=== PATIENT | male | born 1965 | race Caucasian/White ===

== ENCOUNTER → 2016-09-18 | Outpatient (CLI) | payer OTHER ==
--- NOTE | 2016-09-18 10:03 | XR ---
EXAMINATION TYPE: XR knee complete LT DATE OF EXAM: 09/18/2016 9:47 AM CLINICAL HISTORY: Weakness and pain in left knee. TECHNIQUE: Three views of the left knee are obtained. COMPARISON: None. FINDINGS: There is no acute fracture/dislocation evident in left knee. There is mild to moderate tri compartment joint space loss and spurring most pronounced medial tibiofemoral compartment. The overl doyle soft tissue appears unremarkable. IMPRESSION: There is mild to moderate tricompartment degenerative changes most pronounced medial tib iofemoral compartment most likely on basis of osteoarthritis.
== END | disposition home or self-care (01) ==
LOC: RADXRMAIN 09:35
PROVIDERS: ATTEND Physician Assistant
DX: M23.92 Unspecified internal derangement of left knee (principal)

== ENCOUNTER → 2018-03-06 | Outpatient (CLI) | payer OTHER ==
--- NOTE | 2018-03-06 13:05 | CT ---
EXAMINATION TYPE: CT abdomen pelvis wo con DATE OF EXAM: 03/06/2018 COMPARISON: None HISTORY: Left flank pain, blood in urine CT DLP: 461.5 mGycm Automated exposure control for dose reduction was used. TECHNIQUE: Helical acquisition of images was performed from the lung bases through the pelvis. FINDINGS: Lack of intravenous and oral contrast limits evaluation of both the hollow and solid viscer a. LUNG BASES: No significant abnormality is appreciated. LIVER/GB: No significant abnormality is appreciated. PANCREAS: No significant abnormality is seen. No ductal dilatation. SPLEEN: No significant abnormality is seen. No splenomegaly. ADRENALS: No nodularity or thickening. KIDNEYS: No hydronephrosis or nephrolithiasis. Kidneys are overall symmetric FREE AIR: No free air is visualized ADENOPATHY: Within the limitations of lack of intravenous contrast there are no greater than 1 cm sh ort axis lymph nodes in the abdomen or pelvis. REPRODUCTIVE ORGANS: No significant abnormality is seen URINARY BLADDER: Urinary bladder is incompletely distended and without contrast therefore incomplete ly evaluated. OSSEOUS STRUCTURES: Mild degenerative changes of the lumbar spine are seen with moderate bilateral f emoral acetabular arthropathy. BOWEL: No dilated large or small bowel. Decompression of the entirety of the descending colon and sp lenic flexure into the sigmoid colon can be seen due to nondistention or colitis. Right hemicolon and transverse colon are unremarkable. OTHER: Abdominal aorta is of normal course and caliber. Right inguinal ring is fat filled with a very small hernia defect. IMPRESSION: NO HYDRONEPHROSIS OR NEPHROLITHIASIS. NO URINARY BLADDER CALCULI. IF THERE IS CONCERN FOR RENAL MASS, UROEPITHELIAL THICKENING, OR URINARY BLADDER MASS CT UROGRAM COULD BE PERFORMED. FINDINGS THAT CAN B E SEEN IN SPLENIC FLEXURE AND DESCENDING MILD UNCOMPLICATED ACUTE COLITIS OR SIMPLY NONDISTENTION.
== END | disposition home or self-care (01) ==
LOC: RADCTMAIN 02-27 14:34
PROVIDERS: ATTEND Family Medicine
DX: Z53.9 Procedure and treatment not carried out, unspecified reason (principal)

== ENCOUNTER 2018-04-03 06:30 | Inpatient (IN) | payer OTHER ==
[2018-03-31 09:52] VITALS: BMI 27.1
[~2018-04-03 06:30] MED LIST: ACETAMINOPHEN TAB 500 MG TAB PO ONE; ONDANSETRON 4 MG/2 ML VIAL IVP ONE; TRANEXAMIC ACID 1,000 MG in SODIUM CHLORIDE 0.9% 50 ML IVPB ONE; ceFAZolin IN SWFI 2 GM/20 ML SYRINGE IVP ONE
[2018-04-03] MEDS ORDERED: LACTATED RINGERS 1,000 ML IV ONE ×3 (07:03→09:42)
[2018-04-03] MEDS ORDERED: LIDOCAINE 1% 20 ML VIAL (10MG/ML) FOR IV START INTRADERMA ONE (07:05)
[2018-04-03] MEDS ORDERED: TRANEXAMIC ACID 1,000 MG/10 ML VIAL ONE (08:12)
[2018-04-03] MEDS ORDERED: MIDAZOLAM 2 MG/2 ML VIAL ONE (08:12)
[2018-04-03] MEDS ORDERED: SODIUM CHLORIDE 0.9% 100 ML BAG ONE (08:12)
[2018-04-03] MEDS ORDERED: PROPOFOL 10 MG/ML 20 ML VIAL IV ONE (08:12)
[2018-04-03] MEDS ORDERED: fentaNYL (PF) 50 MCG/ML 2 ML AMP ONE (08:12)
[2018-04-03] MEDS: ROPIVACAINE 246.25 MG, EPINEPHrine 0.5 MG, KETOROLAC 30 MG, cloNIDine HCL/PF 80 MCG, WA... MISCELLANE ONE ×10 (08:53→09:43)
[2018-04-03] MEDS ORDERED: ceFAZolin 3,000 MG in SODIUM CHLORIDE 0.9% IRRIGATIO 3,000 ML IRRIGATION ONE (08:59)
[2018-04-03] MEDS ORDERED: MAGNESIUM HYDROXIDE 2,400 MG/10 ML CUP PO PRN (11:13)
[2018-04-03] MEDS ORDERED: NALOXONE 0.4 MG/ML 1 ML VIAL IV PRN (11:13)
[2018-04-03] MEDS ORDERED: hydrOXYzine PAMOATE 25 MG CAP PO PRN (11:13)
[2018-04-03] MEDS ORDERED: HYDROmorphone 1 MG/ML 1 ML SYRINGE IVP PRN ×3 (11:13)
[2018-04-03] MEDS ORDERED: NA PHOS,M-B/NA PHOS,DI-BA 133 ML ENEMA RECTAL PRN (11:13)
[2018-04-03] MEDS ORDERED: ONDANSETRON 4 MG/2 ML VIAL IVP PRN (11:13)
[2018-04-03] MEDS ORDERED: HYDROcodone/APAP 5-325MG 1 EACH TAB PO PRN ×2 (11:13)
[2018-04-03] MEDS ORDERED: LACTATED RINGERS 1,000 ML IV SCH (11:15)
--- NOTE | 2018-04-03 11:50 | XR ---
EXAMINATION TYPE: XR knee limited LT DATE OF EXAM: 04/03/2018 CLINICAL HISTORY: Postoperative evaluation Two views of the left knee are submitted. Identified are changes of total knee arthroplasty with fem oral and tibial components appearing well seated. Postsurgical soft tissue changes are noted. Align ment is anatomic.
[2018-04-03 12:28] VITALS: BP 139/91; PULSE 59; RESP 14; TEMP 97.7
[2018-04-03] MEDS ORDERED: ceFAZolin IN SWFI 2 GM/20 ML SYRINGE IVP SCH (16:00)
--- NOTE | 2018-04-03 17:14 | P.CONS ---
History of Present Illness - Reason for Consult Perioperative complication management - History of Present Illness Patient is a pleasant a 52-year-old gentleman admitted for left knee arthroplasty electively successfully underwent surgery clinically doing well. Denied any pain at this time denied any fever chills nausea vomiting abdominal pain. Patient has he questions about anticoagulation after knee surgery answer the patient's questions and cleared his concerns. Patient does not have any surgical drain at this time. Review of Systems REVIEW OF SYSTEMS: CONSTITUTIONAL: No fever, no malaise, no fatigue. HEENT: No recent visual problems or hearing problems. Denied any sore throat. CARDIOVASCULAR: No chest pain, orthopnea, PND, no palpitations, no syncope. PULMONARY: No shortness of breath, no cough, no hemoptysis. GASTROINTESTINAL: No diarrhea, no nausea, no vomiting, no abdominal pain. Normoactive bowel sounds. NEUROLOGICAL: No headaches, no weakness, no numbness. HEMATOLOGICAL: Denies any bleeding or petechiae. GENITOURINARY: Denies any burning micturition, frequency, or urgency. MUSCULOSKELETAL/RHEUMATOLOGICAL: Denies any joint pain, swelling, or any muscle pain. ENDOCRINE: Denies any polyuria or polydipsia. The rest of the 14-point review of systems is negative. Past Medical History Past Medical History: No Reported History History of Any Multi-Drug Resistant Organisms: None Reported Past Surgical History: Appendectomy, Orthopedic Surgery, Tonsillectomy Additional Past Surgical History / Comment(s): jaw surgery, lt knee arthroscopy Past Anesthesia/Blood Transfusion Reactions: No Reported Reaction Past Psychological History: Anxiety, Depression Smoking Status: Never smoker Past Alcohol Use History: Occasional Past Drug Use History: Marijuana Additional Drug Use History / Comment(s): marijuana in past - Past Family History Mother Family Medical History: Cancer Medications and Allergies Home Medications Medication Instructions Recorded Confirmed Type Ibuprofen [Motrin] 400 mg PO Q6HR PRN 03/31/18 04/03/18 History Testosterone [Testim 1%] 1 applic TOPICAL DAILY 03/31/18 04/03/18 History Aspirin 81 mg PO BID #60 chewable 04/03/18 Rx Docusate [Colace] 100 mg PO BID #60 capsule 04/03/18 Rx Hydrocodone/Acetaminophen [[place] 1 - 2 tab PO Q4-6H PRN #50 tab 04/03/18 Rx 5-325] Rivaroxaban [Xarelto] 10 mg PO DAILY #5 tab 04/03/18 Rx Allergies Allergy/AdvReac Type Severity Reaction Status Date / Time No Known Allergies Allergy Verified 04/03/18 12:20 Physical Exam Vitals: Vital Signs Temp Pulse Pulse Pulse Resp BP BP 04/03/18 17:01 14 04/03/18 12:13 97.7 F 59 L 14 139/91 04/03/18 12:00 57 L 16 123/80 04/03/18 11:46 50 L 16 135/83 04/03/18 11:30 57 L 16 139/84 04/03/18 11:15 61 16 137/71 04/03/18 11:00 48 L 16 144/67 04/03/18 10:53 979.1 F H 63 16 144/74 04/03/18 06:49 97.4 F L 69 16 135/83 Pulse Ox 04/03/18 17:01 04/03/18 12:13 100 04/03/18 12:00 97 04/03/18 11:46 97 04/03/18 11:30 97 04/03/18 11:15 97 04/03/18 11:00 97 04/03/18 10:53 97 04/03/18 06:49 100 Intake and Output 04/03/18 04/03/18 04/03/18 06:59 14:59 22:59 Intake Total 2601 Output Total 50 Balance 2551 Intake: IV 1401 Oral 1200 Output: Estimated Blood Loss 50 Other: Weight 90.718 kg 90.718 kg PHYSICAL EXAMINATION: GENERAL: The patient is alert and oriented x3, not in any acute distress. Well developed, well nourished. HEENT: Pupils are round and equally reacting to light. EOMI. No scleral icterus. No conjunctival pallor. Normocephalic, atraumatic. No pharyngeal erythema. No thyromegaly. CARDIOVASCULAR: S1 and S2 present. No murmurs, rubs, or gallops. PULMONARY: Chest is clear to auscultation, no wheezing or crackles. ABDOMEN: Soft, nontender, nondistended, normoactive bowel sounds. No palpable organomegaly. MUSCULOSKELETAL: Deferred to orthopedic surgery EXTREMITIES: No cyanosis, clubbing, or pedal edema. NEUROLOGICAL: Gross neurological examination did not reveal any focal deficits. SKIN: No rashes. Assessment and Plan Plan: -Left knee arthroplasty: DVT prophylaxis and pain management as per primary service and patient is being discharged on anticoagulation with Xarelto which is appropriate -Osteoarthritis -Depression not in any medications patient is not depressed at this time. Patient is medically stable to be discharged
[2018-04-03] MEDS ORDERED: SENNOSIDES-DOCUSATE SODIUM 1 EACH TAB PO SCH (21:00)
[2018-04-03] MEDS ORDERED: TEMAZEPAM 15 MG CAP PO PRN (22:00)
[2018-04-04] MEDS ORDERED: RIVAROXABAN 10 MG TAB PO SCH (09:00)
--- NOTE | 2018-04-13 14:51 | P.OP ---
Date of Procedure: 04/03/18 Procedure(s) Performed: PREOPERATIVE DIAGNOSIS: Left knee severe osteoarthritis with genu varum POSTOPERATIVE DIAGNOSIS: Left knee severe osteoarthritis with genu varum OPERATION: Left knee cemented total replacement arthroplasty. ANESTHESIA: Spinal ESTIMATED BLOOD LOSS: 100 ml. [employer] PRODUCTION ASSISTANT: Steffany Jaffe NP (assistance with: patient positioning, retraction, exposure, hemostasis, leg positioning, implantation, irrigation, closure, dressing) COMPLICATIONS: None apparent. COMPONENTS IMPLANTED: Persona system from [employer] INDICATIONS: Mr. Navarro is a 52 year old male with a history of left knee osteoarthritis. Conservative treatment has been tried and has been unsuccessful in controlling symptoms adequately. The operation of knee replacement has been discussed at length in the office, as well as potential risks and complications. These are inclusive of, but not limited to: bleeding, infection, scarring, discomfort, blood vessel and nerve damage, need for further surgery, failure to relieve symptoms, persistence, recurrence, or worsening of problems, loosening, dislocation, wear, blood clot, pulmonary embolism, , gait dysfunction, stiffness, and other risks as discussed in the office. The patient elects to proceed and the consent form has been signed. PROCEDURE: The patient was taken to the operating room and positioned on the operating room table in the supine position. Anesthesia was initiated. Care was taken to make sure that all pressure points were adequately padded. The operative lower extremity was prepped and draped in the usual aseptic fashion using ChloraPrep. Ioban drape was used for the case and the patient received intravenous antibiotics within one hour of the incision. A pneumotourniquet and leg brown were used for the case. The limb was exsanguinated with an Esmarch bandage and the tourniquet was inflated to 350 mmHg. Time-out was called confirming the patient's identity, side, procedure and administration of antibiotics and tranexamic acid, 1 g IV. The incision was then created midline directly over the knee, carried down through skin and into the subcutaneous tissues and down to fascia. Full thickness subcutaneous medial flap was developed. Medial parapatellar arthrotomy was performed and the interior of the knee was inspected. There was end-stage osteoarthritis of the knee with a mild to moderate genu varum type deformity. The fat pad was excised and proximal medial release on the tibia was completed using meticulous dissection and a curved osteotome. The anterior cruciate ligament was taken down. Note was made of significant attrition of the anterior and significant degenerative appearance of the posterior cruciate ligaments. The exposure was excellent. The knee was flexed 90 degrees and the patella was everted. A spot was chosen on the femur approximately 1 cm anterior to the posterior cruciate ligament insertion and an intramedullary hole was created within the femur. The intramedullary guide was then set to 5 degrees of valgus. The distal cutting block was attached and pinned into position. An appropriate amount of distal femoral resection was set. The oscillating saw was then used to make the distal femoral cut. This cut was confirmed to be flat with the flat end of an osteotome. The retractors were placed around the tibia and the tibial surface was addressed. The angle and depth of resection was adjusted using an extramedullary cutting guide. The guide had a built-in 3 degree posterior slope cut. Once the cutting guide was adjusted appropriately and in line with the axis of the tibia and confirmed to be in good position in relation to the second metatarsal and transmalleolar axis, the tibial cut was then created with protection of the posterior neurovascular structures and the collateral ligaments. The tibial cut surface was removed and sized. Femoral sizing was then accomplished using anterior referencing. Care was taken to analyze the posterior condyles for signs of deficiency or severe wear, and adjustments to the guide were made, as appropriate. 3 degree external rotation pins were placed. The cutting jig for the femur was applied to these pins. The planned cuts were further analyzed prior to performing them with the oscillating saw. No femoral notching was produced. Bone fragments were removed and the cut surfaces were finished, as necessary, with a reciprocating saw. Spacer block technique was then used to confirm that the flexion and extension gaps were equal. Soft tissue releases and adjustment of the tibial and/or femoral cuts were made, as necessary, until the gaps were equal. This included release of the posterior cruciate ligament, which was tight in this patient. The femur was then further finished for a posterior cruciate ligament substituting component. Patellar resurfacing was performed using a reamer. The size of the required patellar component was estimated and the patellar surface was then reamed down to a residual thickness which would recreate the [place] thickness with the component. The exact placement of the patellar component was adjusted for position based on preoperative x-rays and intraoperative findings. Prior to placing trial components, anesthetic solution consisting of ropivicaine with epinephrine, ketorolac, and clonidine was injected carefully and methodically in a grid pattern using aspiration technique into the soft tissue around the knee circumferentially, starting with the deeper tissues first and progressing to fascia, and then finally the skin/subcutaneous tissue. Particular care was taken when injecting the posterior capsule. The trial components were inserted. The tibial tray was allowed to self center and the patella was noted to track very well. The position of the tibial component was marked and the tibia was then finished for a stemmed tibial component. Cement was mixed on the back table and applied to the final components. Trial components were removed and the cut surfaces of the bone were pulse lavaged thoroughly and dried. Cement was then applied to the tibial surface and pressurized into the surface using finger pressurization technique. The tibial component was then applied and excess cement was removed after it was impacted securely and noted to be flush with the cut surface. In similar fashion, the cement was applied to the cut femoral surface, pressurized in using finger pressurization and the component was impacted into place. Excess cement was removed. The polyethylene spacer was then implanted and locked into position. The patellar component was then applied in similar technique and a patellar clamp was used to hold the patella in place as the cement hardened. Once the cement had fully hardened, the knee was reinspected. Any other cement extrusion was removed and final kinematic testing showed range of motion from 0 to 130 degrees with excellent stability, both medially and laterally and appropriate alignment of the leg. Patellar tracking was excellent. The knee was then thoroughly pulse lavaged with normal saline. The tourniquet was deflated and hemostasis was obtained with electrocautery and IV tranexamic acid, 1 g given prior to inflation of the tourniquet and another gram given at the time of closure. Closure was with #2 Ethibond in the fascia and supplemented with #2 Quill, 2-0 Vicryl suture was used for the subcutaneous tissues and 3-0 Quill for the skin. Dermabond/Steri-Strips were then applied. A lightly compressive dressing was applied using Webril and an Saurav wrap. The patient was then transferred to stretcher and taken to the recovery room in stable condition. Sponge and needle counts were correct.
== END 2018-04-03 17:54 | disposition home or self-care (01) | DRG 470 ==
LOC: 2ORMAIN 06:30 → 4SSUR 12:08
PROVIDERS: ADMIT Orthopaedic Surgery; ATTEND Orthopaedic Surgery
PROC: 0SRD0J9 Replacement of Left Knee Joint with Synthetic Substitute, Cemented, Open Approach (ICD-10-PCS; principal; 2018-04-03 08:00)
DX: M17.12 Unilateral primary osteoarthritis, left knee (principal); I10 Essential (primary) hypertension; M21.162 Varus deformity, not elsewhere classified, left knee; M71.22 Synovial cyst of popliteal space [Baker], left knee; Z79.899 Other long term (current) drug therapy; Z90.49 Acquired absence of other specified parts of digestive tract; Z86.59 Personal history of other mental and behavioral disorders; Z80.9 Family history of malignant neoplasm, unspecified
CPT/HCPCS: 88300

== ENCOUNTER → 2018-05-26 | Outpatient (CLI) | payer OTHER ==
--- NOTE | 2018-05-26 23:06 | CT ---
EXAMINATION TYPE: CT urogram wo/w con DATE OF EXAM: 05/26/2018 COMPARISON: 03/06/2018 HISTORY: 52-year-old male left flank pain, hematuria TECHNIQUE: Contiguous axial scanning of the abdomen and pelvis performed without and with IV Contrast , patient injected with 100 mL of Isovue 300. Delayed images through the the kidneys and bladder were obtained. Coronal/sagittal reconstructions performed. 3-D reconstructions generated on a dedicated [employer] workstation. CT DLP: 2519 mGycm Automated exposure control for dose reduction was used. FINDINGS: The heart is normal size without pericardial effusion. Areas of probable atelectasis in the lower ellie gs. No pleural effusion. Small hiatal hernia. No focal liver lesion. No biliary ductal dilatation. Portal venous system is patent. Gallbladder, adrenal glands, spleen, and pancreas appear within normal limits. There is symmetric uptake and excretion of contrast from both kidneys. No nephrolithiasis or hydronep hrosis. No suspicious renal lesion. No filling defects seen within the renal collecting systems. Only a small portion of the distal right ureter remains nonopacified. However, no gross abnormality i s seen in this region. The visualized ureters show normal course and caliber without any appreciable abnormality. No dilated small bowel, free fluid, or free air. A few prominent mesenteric lymph nodes measure up to 6 mm. Prominent ingested fluid within the stomach. Mild overall stool burden. No pericolonic inflammatory c hange seen. Bladder is urine distended. The delayed 10 minute series shows opacification of the posterior two thi rds of the bladder. No suspicious mural based filling defect is identified along this portion of the opacified bladder. Prostate gland is mildly enlarged at 4.0 cm. No abnormal fluid collection in the p kristi or pelvic lymphadenopathy seen. Incidental partially visualized small hydrocele on the right. Bones: Degenerative changes in both hips and SI joints and mild degenerative disc disease and facet a rthropathy throughout the visualized lumbar spine. IMPRESSION: 1. NO NEPHROLITHIASIS OR HYDRONEPHROSIS. 2. NO RENAL MASS OR SUSPICIOUS FILLING DEFECT INVOLVING THE RENAL COLLECTING SYSTEMS OR ALONG THE COU RSE OF EITHER URETER. NO UROTHELIAL LESION INVOLVING THE OPACIFIED POSTERIOR TWO THIRDS OF THE BLADDE R. 3. SMALL HIATAL HERNIA.
== END | disposition home or self-care (01) ==
LOC: RADCTMAIN 14:17
PROVIDERS: ATTEND Family Medicine
DX: K44.9 Diaphragmatic hernia without obstruction or gangrene (principal); R31.21 Asymptomatic microscopic hematuria
CPT/HCPCS: 74178; 74400; Q9967

== ENCOUNTER 2018-06-24 09:02 | Day surgery (SDC) | payer OTHER ==
[2018-06-22 13:00] VITALS: BMI 26.2
--- NOTE | 2018-06-24 08:10 | P.GSHP ---
History of Present Illness H&P Date: 06/24/18 CHIEF COMPLAINT: Colon screen HISTORY OF PRESENT ILLNESS: The patient is a 53-year-old male who presents for colon screen. Lower endoscopy was offered for further evaluation and management. PAST MEDICAL HISTORY: Please see list. PAST SURGICAL HISTORY: Please see list. MEDICATIONS: Please see list. ALLERGIES: Please see list. SOCIAL HISTORY: No illicit drug use FAMILY HISTORY: No reports of Crohn disease or ulcerative colitis. REVIEW OF ORGAN SYSTEMS: CONSTITUTIONAL: No reports of fevers or chills. PHYSICAL EXAM: VITAL SIGNS: Stable GENERAL: Well-developed pleasant in no acute distress. HEENT: No scleral icterus. Extraocular movements grossly intact. Moist buccal mucosa. NECK: Supple without lymphadenopathy. CHEST: Unlabored respirations. Equal bilateral excursions. CARDIOVASCULAR: Regular rate and rhythm. Distal 2+ pulses. ABDOMEN: Soft, nontender, nondistended. MUSCULOSKELETAL: No clubbing, cyanosis, or edema. ASSESSMENT: 1. Colon screen. PLAN: 1. Recommend proceeding with a lower endoscopy Past Medical History Past Medical History: Osteoarthritis (OA) History of Any Multi-Drug Resistant Organisms: None Reported Past Surgical History: Appendectomy, Orthopedic Surgery, Tonsillectomy Additional Past Surgical History / Comment(s): jaw surgery, lt knee arthroscopy , TOTAL LEFT KNEE Past Anesthesia/Blood Transfusion Reactions: Motion Sickness Smoking Status: Never smoker - Past Family History Mother Family Medical History: Cancer Medications and Allergies Home Medications Medication Instructions Recorded Confirmed Type Ibuprofen [Motrin] 400 mg PO Q6HR PRN 03/31/18 06/22/18 History Testosterone [Testim 1%] 1 applic TOPICAL DAILY 03/31/18 06/22/18 History Aspirin 81 mg PO BID #60 chewable 04/03/18 06/22/18 Rx Allergies Allergy/AdvReac Type Severity Reaction Status Date / Time No Known Allergies Allergy Verified 06/22/18 12:50
[~2018-06-24 09:02] MED LIST changes: -ACETAMINOPHEN TAB 500 MG TAB PO ONE; +LACTATED RINGERS 1,000 ML IV SCH; +LIDOCAINE 1% 20 ML VIAL (10MG/ML) FOR IV START INTRADERMA PRN; -ONDANSETRON 4 MG/2 ML VIAL IVP ONE; -TRANEXAMIC ACID 1,000 MG in SODIUM CHLORIDE 0.9% 50 ML IVPB ONE; -ceFAZolin IN SWFI 2 GM/20 ML SYRINGE IVP ONE
[2018-06-24 09:16] VITALS: TEMP 97.7
[2018-06-24] MEDS ORDERED: LIDOCAINE 1% INJ 10MG/ML (20 ML MDV) ONE (09:49)
[2018-06-24] MEDS ORDERED: PROPOFOL 10 MG/ML 20 ML VIAL IV ONE (09:49)
--- NOTE | 2018-06-24 10:15 | P.PCN ---
Date of Procedure: 06/24/18 Description of Procedure: PREOPERATIVE DIAGNOSIS: Colonoscopy screening, first Family history colon polyps, father POSTOPERATIVE DIAGNOSIS: Colonoscopy screening, first Family history colon polyps, father. Ascending colon polyp OPERATION: Colonoscopy with cold forceps biopsy, ascending colon Colonoscopy to the ileocecal valve SURGEON: Tonie Cornejo MD. ANESTHESIA: MAC. INDICATIONS: The patient is a 53-year-old male who presents for his first colonoscopy screening. Benefits and risks were described and informed consent was obtained. DESCRIPTION OF PROCEDURE: The patient had undergone Gatorade, MiraLAX and Dulcolax prep. She had been brought into the operating room and laid in the left lateral decubitus position. After adequate intravenous sedation, the rectum was examined with 2% lidocaine jelly. No external hemorrhoids were encountered. The rectal tone was within normal limits. The prostate was within normal limits. No lesions were palpated in the rectal vault. An Olympus colonoscope was advanced until the ileocecal valve was clearly viewed. The prep was good with visualization of the mucosal folds. The scope was removed with visualization of each mucosal fold. No scattered diverticulosis was encountered. Hyperplastic ascending 4- mm colon polyp was cold forceps biopsy to completion. No evidence of focal colitis was found. Retroflexion of the scope demonstrated no internal hemorrhoids without active bleeding or inflammation. The colon was desufflated. The patient had tolerated the procedure well. Withdrawal time was over 6 minutes. FINDINGS: No internal hemorrhoids no external prolapsed hemorrhoids Hyperplastic descending 4-mm colon polyp ascending colon No scattered diverticulosis No arteriovenous malformations. No adenomatous polyps. No focal colitis. RECOMMENDATIONS: Lower endoscopy in 5 years2023 Plan - Discharge Summary Discharge Rx Participant: Yes New Discharge Prescriptions: No Action Ibuprofen [Motrin] 400 mg PO Q6HR PRN PRN Reason: Pain Testosterone [Testim 1%] 1 applic TOPICAL DAILY Aspirin 81 mg PO BID #60 chewable Discharge Medication List Ibuprofen [Motrin] 400 mg PO Q6HR PRN 03/31/18 [History] Testosterone [Testim 1%] 1 applic TOPICAL DAILY 03/31/18 [History] Aspirin 81 mg PO BID #60 chewable 04/03/18 [Rx] Follow up Appointment(s)/Referral(s): Tonie Cornejo MD [STAFF PHYSICIAN] - 1 Week Patient Instructions/Handouts: Colorectal Polyps (IP) Activity/Diet/Wound Care/Special Instructions: Repeat colonoscopy 5 years, 2023 Discharge Disposition: HOME SELF-CARE
[2018-06-24 10:25] VITALS: RESP 14
[2018-06-24 10:41] VITALS: BP 136/91; PULSE 89
== END 2018-06-24 10:52 | disposition home or self-care (01) ==
LOC: ORWHC2ENDO 09:02
PROVIDERS: ATTEND Surgery Plastic and Reconstructive Surgery
DX: Z12.11 Encounter for screening for malignant neoplasm of colon (principal); D12.2 Benign neoplasm of ascending colon; Z83.71 Family history of colonic polyps; M19.90 Unspecified osteoarthritis, unspecified site; Z79.82 Long term (current) use of aspirin; Z79.890 Hormone replacement therapy
CPT/HCPCS: 88305; 45380; J2001; J2704

== ENCOUNTER → 2019-07-12 | Outpatient (CLI) | payer OTHER ==
[2019-07-12 15:05] LABS: Appearance,Urine Clear (Clear); Bilirubin,Urine Negative (Negative); Blood,Urine Small (Negative); Color,Urine Yellow; Glucose,Urine (UA) Negative (Negative); Ketones,Urine Negative (Negative); Leukocyte Esterase,Urine Small (Negative); Mucus,Urine Few /hpf; Nitrite,Urine Negative (Negative); PH, Urine 5.5 (5.0-8.0); Protein,Urine Negative (Negative); RBC,Urine 5 /hpf (0-5); Specific Gravity,Urine 1.022 (1.001-1.035); WBC,Urine 8 /hpf (0-5)
[2019-07-12 15:12] LABS: ALT 16 U/L (4-49); AST 25 U/L (17-59); African American GFR (CKD) >90 (>60 ml/min/1.73 sqM); Albumin 4.5 g/dL (3.5-5.0); Alkaline Phosphatase 59 U/L (38-126); Anion Gap 8 mmol/L; Blood Urea Nitrogen 18 mg/dL (9-20); Carbon Dioxide 24 mmol/L (22-30); Chloride 106 mmol/L (98-107); Glucose 116 mg/dL (74-99); Non-African American GFR(CKD) >90 (>60 ml/min/1.73 sqM); Partial Thromboplastin Time 30.3 sec (22.0-30.0); Potassium 4.6 mmol/L (3.5-5.1); Prothrombin Time 9.9 sec (9.0-12.0); Sodium 138 mmol/L (137-145); Total Bilirubin 0.6 mg/dL (0.2-1.3); Total Protein 7.3 g/dL (6.3-8.2)
[2019-07-12 15:22] LABS: Basophils # (A) 0.1 k/uL (0-0.2); Basophils % (A) 1 %; Eosinophils # (A) 0.2 k/uL (0-0.7); Eosinophils % (A) 3 %; HCT 43.3 % (39.0-53.0); HGB 14.8 gm/dL (13.0-17.5); Lymphocytes # (A) 1.7 k/uL (1.0-4.8); Lymphocytes % (A) 24 %; MCH 31.8 pg (25.0-35.0); MCHC 34.2 g/dL (31.0-37.0); MCV 92.8 fL (80.0-100.0); Mean Platelet Volume 7.7; Monocytes # (A) 0.5 k/uL (0-1.0); Monocytes % (A) 7 %; Neutrophils # (A) 4.4 k/uL (1.3-7.7); Neutrophils % (A) 63 %; Platelet Count 309 k/uL (150-450); RBC 4.66 m/uL (4.30-5.90); RDW 12.3 % (11.5-15.5); WBC 6.9 k/uL (3.8-10.6)
== END | disposition home or self-care (01) ==
LOC: LABPAT 13:34
PROVIDERS: ATTEND Orthopaedic Surgery
DX: Z01.818 Encounter for other preprocedural examination (principal); Z01.812 Encounter for preprocedural laboratory examination; M16.11 Unilateral primary osteoarthritis, right hip
CPT/HCPCS: 80053; 81001; 85025; 85610; 85730; 87070

== ENCOUNTER 2019-07-19 13:39 | Observation (INO) | payer OTHER ==
[2019-07-16 08:45] VITALS: BMI 27.1
[~2019-07-19 13:39] MED LIST changes: +ACETAMINOPHEN TAB 500 MG TAB PO ONE; +GABAPENTIN 300 MG CAP PO ONE; +HYDROmorphone 0.5 MG/0.5 ML SYRINGE IVP PRN; -LACTATED RINGERS 1,000 ML IV SCH; +LIDOCAINE 1% (10MG/ML) FOR IV START INTRADERMA PRN; -LIDOCAINE 1% 20 ML VIAL (10MG/ML) FOR IV START INTRADERMA PRN; +MELOXICAM 7.5 MG TAB PO ONE; +MIDAZOLAM 2 MG/2 ML VIAL IV PRN; +ONDANSETRON 4 MG/2 ML VIAL IVP ONE; +ROPIVACAINE 246.25 MG, EPINEPHrine 0.5 MG, KETOROLAC 30 MG, cloNIDine HCL/PF 80 MCG, WA... MISCELLANE ONE; +TRANEXAMIC ACID 1,000 MG in SODIUM CHLORIDE 0.9% 100 ML IVPB ONE
[2019-07-19] MEDS: LACTATED RINGERS 1,000 ML IV SCH ×2 (14:25→20:39)
[2019-07-19] MEDS ORDERED: DEXAMETHASONE SOD PHOSPHATE 10 MG/ML 1 ML VIAL IV ONE (14:26)
[2019-07-19] MEDS ORDERED: KETAMINE 10 MG/ML 20 ML VIAL ONE (14:31)
[2019-07-19] MEDS ORDERED: fentaNYL (PF) 50 MCG/ML 2 ML AMP ONE (14:31)
[2019-07-19] MEDS ORDERED: PROPOFOL 10 MG/ML 20 ML VIAL IV ONE (14:31)
[2019-07-19] MEDS ORDERED: ePHEDrine SULFATE/0.9% NACL/PF 50 MG/5 ML SYRINGE IV ONE (14:31)
[2019-07-19] MEDS ORDERED: HYDROmorphone (PF) 1 MG/ML ONE (14:31)
[2019-07-19] MEDS ORDERED: MIDAZOLAM 2 MG/2 ML VIAL ONE (14:31)
[2019-07-19] MEDS ORDERED: ceFAZolin 3,000 MG in SODIUM CHLORIDE 0.9% IRRIGATIO 3,000 ML IRRIGATION ONE (15:07)
[2019-07-19] MEDS ORDERED: LACTATED RINGERS 1,000 ML IV ONE (15:54)
--- NOTE | 2019-07-19 16:30 | P.OP ---
Date of Procedure: 07/19/19 Procedure(s) Performed: PREOPERATIVE DIAGNOSIS: Right hip severe osteoarthritis POSTOPERATIVE DIAGNOSIS: Right hip severe osteoarthritis OPERATION: Right hip total replacement arthroplasty (uncemented implantation with metal on polyethylene articulation). ANESTHESIA: Spinal ESTIMATED BLOOD LOSS: 400 ml. PEDIATRIC CNS: Nancy Varela PA-C (assistance with: patient positioning, retraction, exposure, hemostasis, leg positioning, implantation, irrigation, closure, dressing) COMPLICATIONS: None apparent. COMPONENTS IMPLANTED: Ricki continuum acetabular cup with cluster holes; continuum longevity 15 elevated liner, 32 mm id; Ricki VerSys Fiber Metal stem; VerSys 32 mm femoral head with +10.5 mm neck length extension INDICATIONS: Mr. Navarro is a 54-year-old male with significant end-stage osteoarthritis involving the right hip and commensurate severe symptoms. He presents to the operating room today for total hip replacement. I have discussed the steps of the operation as well as potential risks and complications as being inclusive of, but not limited to: Leading, infection, scarring, discomfort, or vessel and/or nerve damage, need for further surgery, loosening, dislocation, wear, osteolysis, limb length inequality, fracture, blood clot, pulmonary embolism, , persistent limp, and other risks. The patient is aware these risks and wishes to proceed with surgery and has signed a consent form. PROCEDURE: After appropriate consent was obtained, the patient was taken to the operating room and placed in supine position. Spinal anesthetic was administered and after confirmation of adequate anesthesia, the patient was placed into the lateral decubitus position with the right side up. Care was taken to make sure that all pressure points were adequately padded and he was stabilized to the table with a [place] hip positioner. The right hip was prepped and draped in the usual aseptic fashion using a combination of ChloraPrep and alcohol. Ioban drape was used for the case and the patient received intravenous antibiotics prior to the incision. "Time out" was called, confirming patient identity, side, procedure, availability of implants and administration of antibiotics and tranexamic acid. The incision was created directly over the greater trochanter and carried s lightly posteriorly for a posterior approach to the hip. The incision was then deepened down to subcutaneous tissue and fascia blanca. Fascia blanca was split in line with the incision and split proximally along the fibers of the gluteus francisco. The underlying fibers of the muscle were teased apart using finger dissection and bleeding vessels were picked up and coagulated. Retractor was then placed posteriorly consisting of a blunt Bessie. The short external rotators and capsule were exposed using good visualization of the attachment of the external rotators to the femur was established. The short external rotators and capsule were released using electrocautery from their femoral attachments. A hockey stick shaped incision was created in the capsule. Joint fluid was evacuated and the patient's hip was able to be dislocated fairly easily. The patient's femoral head was severely arthritic with eburnated bone present and a 360 degrees garza of osteophytes. The femoral neck cut was created approximately 1 cm superior to the lesser trochanter using a reciprocating saw. The femoral head and neck fragment was removed and attention was then directed to the acetabulum. An anterior acetabular retractor was applied followed by posterior retraction of the capsule with a Meyerding retractor. This afforded good visualization into the acetabular cavity. Soft tissue was removed and residual cartilage within the acetabular vault was removed using a curette. Labrum was removed using a long-handled knife. Attention was then directed to reaming. The size 44 reamer was used first, followed by increasing increments until the final size reamer was used. Please see the implantation sheet for exact sizes used for the components. Once the final reamer had been utilized to expand the socket it was noted that there was a good supportive bone around the acetabular socket and no further reaming needed to be performed. The trial the same size as the last reamer used was then impacted into the acetabular vault and found to have good fit. The acetabular component, one size (2mm) greater than the trial was then called for. The cluster holes were placed posteriorly and the component was impacted in a position of approximately 40 degrees abduction and 20 degrees anteversion. This matched this patient's torres martinez anteversion and it was noted that the cup had excellent stability without need for additional screw fixation. Attention was then directed to the acetabular liner. The anteversion and abduction angle of the component was noted to be very good. A 15 elevated liner was used and locked into position with the elevation posterior superior. Osteophytes around the posterior and inferior aspect of the acetabulum were trimmed as necessary to prevent any impingement. Attention was then directed back to the proximal femur. Retractors were placed around the proximal femur and box osteotome was used followed by canal finder and trochanteric reamer. Cylindrical reaming was performed. Progressive broaching was then performed starting with a #10 broach and progressing final size, in a position of 15 degrees anteversion. [place] anteversion was within 5 degrees of stem position. The final size broach had excellent fit and fill of the patient's metaphysis and diaphysis. Trial reduction was then performed starting with size 32 mm femoral head and various neck combination of stability, limb length equality, and soft tissue tension. Trial components were then removed. The canal was lavaged and the final size femoral stem component was impacted into position. The implant fit very well and had excellent stability. The femoral head was then impacted onto the Cruz taper. Blood and debris were removed from the acetabular component and the hip was then reduced and checked for stability, limb length and soft tissue tension. These parameters found to be satisfactory, the wound was then thoroughly irrigated with normal saline. Final hemostasis was obtained using electrocautery and IV tranexamic acid, 1 g given at the time of prepping and draping, and another 1 g given at the time of closure. Local anesthetic solution consisting of ropivacaine with epinephrine, clonidine, and ketorolac was also used throughout the case targeting the capsule, fascia, and skin. Closure of the capsule was performed meticulously using #3 Vicryl suture. Four [id number] sutures were placed in the posterior capsule along with repair of the external rotators. The fascia blanca was then repaired using combination of #3 Vicryl suture in interrupted fashion and Quill and running fashion. 2-0 Vicryl suture was used for the subcutaneous tissues and 3-0 Quill for the skin. Dermabond or Steri-Strips were then applied. The patient tolerated the procedure well. There were no complications and the wound bed was dry and there was no need for drain placement. Sterile dressing was then applied and the patient was carefully removed from the operating room table, placed on the stretcher and was taken to the recovery room in stable condition. Sponge and needle counts were correct.
[2019-07-19] MEDS ORDERED: MAGNESIUM HYDROXIDE 2,400 MG/10 ML CUP PO PRN (16:57)
[2019-07-19] MEDS ORDERED: TEMAZEPAM 15 MG CAP PO PRN (16:57)
[2019-07-19] MEDS ORDERED: HYDROmorphone 0.5 MG/0.5 ML SYRINGE IVP PRN ×2 (16:57)
[2019-07-19] MEDS ORDERED: NALOXONE 0.4 MG/ML 1 ML VIAL IV PRN (16:57)
[2019-07-19] MEDS ORDERED: HYDROcodone/APAP 7.5-325MG 1 EACH TAB PO PRN ×2 (16:57)
[2019-07-19] MEDS ORDERED: ONDANSETRON 4 MG/2 ML VIAL IVP PRN (16:57)
[2019-07-19] MEDS ORDERED: HYDROmorphone 1 MG/ML 1 ML SYRINGE IVP PRN (16:57)
--- NOTE | 2019-07-19 17:35 | XR ---
EXAMINATION TYPE: XR Hip Limited RT DATE OF EXAM: 07/19/2019 COMPARISON: 07/18/2015 HISTORY: Postop TECHNIQUE: Single view FINDINGS: There is a right hip prosthesis. Components are in anatomic position. IMPRESSION: No complicating process seen.
[2019-07-19] MEDS: ASPIRIN 325 MG TAB PO SCH (20:39)
[2019-07-19] MEDS ORDERED: SENNOSIDES-DOCUSATE SODIUM 1 EACH TAB PO SCH (21:00)
[2019-07-20] MEDS: LACTATED RINGERS 1,000 ML IV SCH ×2 (06:07→08:35)
[2019-07-20 07:59] LABS: Basophils % (A) 0 %; Eosinophils # (A) 0.1 k/uL (0-0.7); Eosinophils % (A) 1 %; HCT 33.5 % (39.0-53.0); Lymphocytes # (A) 1.2 k/uL (1.0-4.8); Lymphocytes % (A) 10 %; MCH 31.9 pg (25.0-35.0); MCHC 34.4 g/dL (31.0-37.0); MCV 92.7 fL (80.0-100.0); Mean Platelet Volume 7.3; Monocytes % (A) 8 %; Neutrophils # (A) 9.1 k/uL (1.3-7.7); Neutrophils % (A) 79 %; Platelet Count 246 k/uL (150-450); RBC 3.61 m/uL (4.30-5.90); RDW 12.4 % (11.5-15.5); WBC 11.6 k/uL (3.8-10.6)
[2019-07-20 08:12] VITALS: BP 110/72; PULSE 73; RESP 16; TEMP 97.8
[2019-07-20 08:12] LABS: HGB 11.5 gm/dL (13.0-17.5)
[2019-07-20] MEDS: ASPIRIN 325 MG TAB PO SCH (08:49)
[2019-07-20] MEDS ORDERED: MELOXICAM 7.5 MG TAB PO SCH (09:00)
--- NOTE | 2019-07-20 09:38 | P.PN ---
Subjective This patient is a 54-year-old male resting in bed comfortably status post right hip replacement, he states that he is to be discharged home today after getting up with physical therapy, he denies any shortness of breath, any chest pain, reports minimal discomfort at surgical, site denies any distress at this time Objective - Vital Signs Vital signs: Vital Signs Temp 97.8 F 07/20/19 07:11 Pulse 73 07/20/19 07:11 Resp 16 07/20/19 07:11 BP 110/72 07/20/19 07:11 Pulse Ox 94 L 07/20/19 07:11 Intake & Output 07/19/19 07/20/19 07/20/19 18:59 06:59 18:59 Intake Total 1451 Output Total 400 1750 Balance 1051 -1750 Weight 91.1 kg Intake: IV 1451 Output: Urine 1750 Estimated Blood Loss 400 Other: Voiding Method Urinal - Constitutional General appearance: Present: mild distress - Neck Neck: Present: normal ROM - Respiratory Respiratory: bilateral: CTA - Cardiovascular Rhythm: regular Heart sounds: normal: S1, S2 - Gastrointestinal General gastrointestinal: Present: normal bowel sounds, soft - Integumentary Integumentary: Present: normal - Psychiatric Psychiatric: Present: A&O x's 3, appropriate affect, intact judgment & insight - Labs CBC & Chem 7: 07/20/19 07:16 Labs: Abnormal Lab Results - Last 24 Hours (Table) 07/20/19 Range/Units 07:16 WBC 11.6 H (3.8-10.6) k/uL RBC 3.61 L (4.30-5.90) m/uL Hgb 11.5 L D (13.0-17.5) gm/dL Hct 33.5 L (39.0-53.0) % Neutrophils # 9.1 H (1.3-7.7) k/uL Assessment and Plan Assessment: Osteoarthritis status post right total hip arthroplasty History of hypertension History of hyperlipidemia Plan: Will continue to follow and medically manage Follow-up with Dr. Beny Bender in 2-3 days after discharge
--- NOTE | 2019-07-21 14:33 | P.DS ---
Providers Date of admission: 07/20/19 03:13 Expected date of discharge: 07/20/19 Attending physician: Kapil Atkins Consults: 07/19/19 16:57 Consult Physician Routine Consulting Provider: Beny Bender Consult Reason/Comments: Medical management Do you want consulting provider notified?: Yes Primary care physician: Beny Bender - Discharge Diagnosis(es) (1) Primary localized osteoarthritis of right hip Status: Acute (2) Status post total hip replacement, right Status: Acute Hospital Course: This is a 68 year old male who presented to our office for evaluation of right hip pain. He has a known history of Degenerative arthritis of the right hip and has failed outpatient conservative treatment and presented to discuss surgical options. After discussion and consideration the patient elects to proceed with total right hip arthroplasty. The patient was seen preoperatively by his primary care physician and cleared for surgery. The patient presented to the hospital on 07/19/2019 for total right hip arthroplasty. The procedure is performed without complication or sequelae. The patient is doing well on postop day #1 and cleared for discharge home. Please see med rec for accurate list of home medications. Patient Condition at Discharge: Good Plan - Discharge Summary Discharge Rx Participant: Yes New Discharge Prescriptions: New Aspirin 325 mg PO BID #60 tab Meloxicam [Mobic] 1 - 2 tab PO DAILY PRN #30 tab PRN Reason: Pain HYDROcodone/APAP 7.5-325MG [Lindsay 7.5-325] 1 - 2 tab PO Q4-6H PRN #50 tab PRN Reason: Pain Sennosides-Docusate Sodium [Senokot-S] 1 tab PO BID #60 tablet Continue Testosterone [Testim 1%] 1 applic TOPICAL DAILY Cialis (Unknown Dose) 1 tab PO DIRECTED PRN PRN Reason: ed Multivitamin/Iron/Folic Acid [Centrum Adults Tablet] 1 tab PO DAILY Cymbalta (Unknown Dose) 1 tab PO DAILY Discontinued Ibuprofen [Motrin Ib] 600 mg PO DIRECTED PRN PRN Reason: Pain Discharge Medication List Testosterone [Testim 1%] 1 applic TOPICAL DAILY 03/31/18 [History] Cialis (Unknown Dose) 1 tab PO DIRECTED PRN 07/16/19 [History] Cymbalta (Unknown Dose) 1 tab PO DAILY 07/16/19 [History] Multivitamin/Iron/Folic Acid [Centrum Adults Tablet] 1 tab PO DAILY 07/16/19 [History] Aspirin 325 mg PO BID #60 tab 07/19/19 [Rx] HYDROcodone/APAP 7.5-325MG [Lindsay 7.5-325] 1 - 2 tab PO Q4-6H PRN #50 tab 07/19/19 [Rx] Meloxicam [Mobic] 1 - 2 tab PO DAILY PRN #30 tab 07/19/19 [Rx] Sennosides-Docusate Sodium [Senokot-S] 1 tab PO BID #60 tablet 07/19/19 [Rx] Follow up Appointment(s)/Referral(s): Nancy Varela PAC [PHYSICIAN FILE CLERK] - 08/04/19 2:45 pm Beny Bender MD [Primary Care Provider] - 07/27/19 10:40 am [facility], [NON-STAFF] - As Needed Patient Instructions/Handouts: Total Hip Replacement (DC) Activity/Diet/Wound Care/Special Instructions: Toe touch wt bearing RLE w walker. Keep optifoam dressing in place 10 days. May shower 48h post op. If taking Mobic, only take Aspirin once daily. Discharge Disposition: HOME SELF-CARE
== END 2019-07-20 11:25 | disposition home or self-care (01) ==
LOC: OR 13:39 → 4SSUR 16:53 → OR 07-20 04:05
PROVIDERS: ADMIT Orthopaedic Surgery; ATTEND Orthopaedic Surgery
DX: M16.11 Unilateral primary osteoarthritis, right hip (principal); I10 Essential (primary) hypertension; E78.5 Hyperlipidemia, unspecified; H53.8 Other visual disturbances; F32.9 Major depressive disorder, single episode, unspecified; Z96.652 Presence of left artificial knee joint; Z82.49 Family history of ischemic heart disease and other diseases of the circulatory system; Z79.899 Other long term (current) drug therapy; Z90.49 Acquired absence of other specified parts of digestive tract; Z90.89 Acquired absence of other organs
CPT/HCPCS: 97161; 97165; 86900; 86901; 85025; 86850; 88300; 73501; 36415; 27130; G0378; C1776; J2250; J0171; J1100; J0690 ×3; J2405; J3010; J1885; J1170 ×3; J2795; J2704; J0735

== ENCOUNTER → 2020-07-07 | Outpatient (CLI) | payer OTHER ==
[2020-07-07 09:16] LABS: ALT 19 U/L (4-49); AST 25 U/L (17-59); African American GFR (CKD) >90 (>60 ml/min/1.73 sqM); Albumin 4.3 g/dL (3.5-5.0); Albumin/Globulin Ratio 1.6; Alkaline Phosphatase 46 U/L (38-126); Anion Gap 7 mmol/L; Blood Urea Nitrogen 24 mg/dL (9-20); Calcium 9.6 mg/dL (8.4-10.2); Carbon Dioxide 29 mmol/L (22-30); Chloride 105 mmol/L (98-107); Cholesterol 198 mg/dL (<200); Globulin 2.7 g/dL; Glucose 108 mg/dL (74-99); HDL Cholesterol 75 mg/dL (40-60); LDL Cholesterol,Calculated 104 mg/dL (0-99); Non-African American GFR(CKD) 85 (>60 ml/min/1.73 sqM); Potassium 4.6 mmol/L (3.5-5.1); Sodium 141 mmol/L (137-145); Total Bilirubin 0.7 mg/dL (0.2-1.3); Triglycerides 96 mg/dL (<150)
== END | disposition home or self-care (01) ==
LOC: LABWHC1 07:59
PROVIDERS: ATTEND Internal Medicine Interventional Cardiology
DX: E78.2 Mixed hyperlipidemia (principal)
CPT/HCPCS: 36415; 80053; 80061

== ENCOUNTER → 2020-08-29 | Outpatient (CLI) | payer OTHER ==
[2020-08-29 11:06] LABS: HCT 42.2 % (39.0-53.0); HGB 15.2 gm/dL (13.0-17.5); MCH 33.5 pg (25.0-35.0); MCHC 35.9 g/dL (31.0-37.0); MCV 93.2 fL (80.0-100.0); Mean Platelet Volume 6.6; Platelet Count 272 k/uL (150-450); RBC 4.53 m/uL (4.30-5.90); RDW 12.1 % (11.5-15.5)
[2020-08-29 11:27] LABS: African American GFR (CKD) >90 (>60 ml/min/1.73 sqM); Anion Gap 7 mmol/L; Blood Urea Nitrogen 14 mg/dL (9-20); Carbon Dioxide 28 mmol/L (22-30); Chloride 103 mmol/L (98-107); Non-African American GFR(CKD) 83 (>60 ml/min/1.73 sqM); Potassium 4.6 mmol/L (3.5-5.1); Sodium 138 mmol/L (137-145)
== END | disposition home or self-care (01) ==
LOC: LABPAT 09:48
PROVIDERS: ATTEND Internal Medicine Interventional Cardiology
DX: Z01.818 Encounter for other preprocedural examination (principal); R94.39 Abnormal result of other cardiovascular function study
CPT/HCPCS: 36415; 80051; 82565; 84520; 85027

== ENCOUNTER 2020-08-31 07:47 | Day surgery (SDC) | payer OTHER ==
[~2020-08-31 07:47] MED LIST changes: -ACETAMINOPHEN TAB 500 MG TAB PO ONE; +ALPRAZolam 0.25 MG TAB PO PRN; +ALPRAZolam 0.5 MG TAB PO PRN; +ASPIRIN 325 MG TAB PO STA; +ATORVASTATIN 80 MG TAB PO STA; -GABAPENTIN 300 MG CAP PO ONE; +HEPARIN SODIUM,PORCINE 10,000 UNIT in SODIUM CHLORIDE 0.9% 1,000 ML IRRIGATION PRN; +HEPARIN SODIUM,PORCINE 2,500 UNIT in SODIUM CHLORIDE 0.9% 250 ML IRRIGATION PRN; -HYDROmorphone 0.5 MG/0.5 ML SYRINGE IVP PRN; -LIDOCAINE 1% (10MG/ML) FOR IV START INTRADERMA PRN; -MELOXICAM 7.5 MG TAB PO ONE; -MIDAZOLAM 2 MG/2 ML VIAL IV PRN; +NITROGLYCERIN SL TABS 0.4 MG TAB SUBLINGUAL PRN; -ONDANSETRON 4 MG/2 ML VIAL IVP ONE; -ROPIVACAINE 246.25 MG, EPINEPHrine 0.5 MG, KETOROLAC 30 MG, cloNIDine HCL/PF 80 MCG, WA... MISCELLANE ONE; +SODIUM CHLORIDE 0.9% 1,000 ML in EMPTY BAG 1 BAG IV ONE; -TRANEXAMIC ACID 1,000 MG in SODIUM CHLORIDE 0.9% 100 ML IVPB ONE
[2020-08-31 08:08] VITALS: RESP 18; TEMP 97.5
[2020-08-31] MEDS ORDERED: LIDOCAINE 1% INJ 10MG/ML (20 ML MDV) SQ ONE (10:40)
[2020-08-31] MEDS ORDERED: MIDAZOLAM 2 MG/2 ML VIAL IV ONE ×2 (10:41)
[2020-08-31] MEDS ORDERED: fentaNYL (PF) 50 MCG/ML 2 ML AMP IV ONE (10:42)
[2020-08-31] MEDS: VERAPAMIL SYRINGE (5 MG/10 ML) INTRAARTER ONE ×2 (10:42→10:48)
[2020-08-31] MEDS ORDERED: HEPARIN SODIUM 1,000 UN/ML (10ML VL) IV ONE (10:50)
[2020-08-31] MEDS ORDERED: IOPAMIDOL-370 125ML BTL INJ ONE (10:50)
[2020-08-31] MEDS ORDERED: RX INFO: IV CONTRAST WAS GIVEN 1 EACH MISC MISCELLANE PRN (11:09)
[2020-08-31] MEDS ORDERED: SODIUM CHLORIDE 0.9% 1,000 ML IV SCH (11:15)
[2020-08-31] MEDS ORDERED: SODIUM CHLORIDE 0.9% 500 ML 500 ML IV ONE (11:30)
--- NOTE | 2020-08-31 12:01 | CC ---
CARDIAC CATHETERIZATION REPORT Mr. Navarro is a 55-year-old male with no prior documented history of coronary artery disease who had mild dyspnea on exertion. He underwent an echocardiogram revealed a mildly impaired left ventricular systolic function and his stress echocardiogram suggested segmental wall motion abnormality. In view of that, recommendation was made regarding cardiac catheterization. The procedure as well as the risks and the complications were discussed with the patient who is in full understanding and agreement. PROCEDURE: Patient was brought to the carpenter labor supervisor in a fasting semi-sedated state after receiving fentanyl and Benadryl and achieving moderate conscious sedated state. Using Xylocaine anesthesia and Seldinger technique, a 6-Turkmen sheath was introduced in the right radial artery. Selective right and left coronary angiography was performed using 5- Turkmen 3.5 bend, right and left Rm catheter. Multiple views of the coronary artery including hemiaxial views were obtained. Following that, 5-Turkmen tight pigtail catheter was introduced in the left ventricle and a 30-degree MAYBERRY view of the left ventricle was obtained. Following that, catheter and sheaths were removed. Hemostasis was obtained with deployment of a TR band. There was no immediate complication. Patient was returned to his room in stable condition. Of note, the patient received 5000 units of intravenous heparin as well as intra-arterial verapamil. FINDINGS: LEFT MAIN: This is a short size vessel, bifurcating into left circumflex, left anterior descending artery. Left main coronary artery is without any significant obstructive disease. LEFT ANTERIOR DESCENDING ARTERY: This is a large-sized vessel reaching to the apex with a wraparound apex segment giving rise to 2 diagonal branches. The left anterior descending artery as well as branches have no evidence of obstructive coronary artery disease. LEFT CIRCUMFLEX: This is a nondominant vessel, large in caliber giving rise to 3 obtuse marginal branches. The left circumflex as well as branches have no evidence of obstructive coronary artery disease. RIGHT CORONARY ARTERY: This is a dominant vessel bifurcating distally PDA and posterolateral segment and branches. The right coronary artery as well as branches have no evidence of obstructive coronary artery disease. LEFT VENTRICULOGRAM: Left ventriculogram was performed in 30-degree MAYBERRY view and revealed a mild global hypokinesis. Ejection fraction is estimated at 45% to 50%. There was no significant mitral regurgitation. HEMODYNAMICS: There was no gradient across the aortic valve. The left ventricular end-diastolic pressure was 15-18 mmHg. CONCLUSION: 1. Normal coronary arteries. 2. Mildly impaired left ventricular systolic function. RECOMMENDATION: In view of finding anatomy, I recommend to maximize his medical therapy. It appears that he has mild nonischemic cardiomyopathy. Those findings and recommendation were discussed with the patient and his family who is in full understanding and agreement. Duration the sedation is 18 minutes. ZI / JORDON: [id number] /
--- NOTE | 2020-08-31 12:04 | LTR ---
August 31, 2020 Re: Zach Tariqie Dear Dr. Bender: I had the opportunity to perform cardiac catheterization on Mr. Navarro at [facility] on the 31 of August and a full copy of the procedure note will be forwarded to you. In brief, he was found to have no evidence of obstructive coronary artery disease, but there was evidence of mild nonischemic cardiomyopathy. Based on those findings, I would recommend to maximize his medical therapy and depending on his progress, further recommendations will be made. Thank you again for allowing me the opportunity to participate in his care. Please feel free to call for any questions. Sincerely yours, MD LAURI BradfordL / KIMBERLYN: [id number] /
[2020-08-31 14:32] VITALS: BP 133/78; PULSE 55
[2020-08-31] MEDS ORDERED: METOPROLOL TARTRATE 25 MG TAB PO SCH (21:00)
[2020-09-01] MEDS ORDERED: ASPIRIN 81 MG PO SCH (09:00)
[2020-09-01] MEDS ORDERED: MULTIVITAMINS, THERA 1 EACH TAB PO SCH (09:00)
== END 2020-08-31 15:00 | disposition home or self-care (01) ==
LOC: CATHCVL 07:47
PROVIDERS: ATTEND Internal Medicine Interventional Cardiology
DX: I34.0 Nonrheumatic mitral (valve) insufficiency (principal); R94.31 Abnormal electrocardiogram [ECG] [EKG]; E78.2 Mixed hyperlipidemia; Z90.89 Acquired absence of other organs; Z96.649 Presence of unspecified artificial hip joint; Z96.659 Presence of unspecified artificial knee joint; Z87.891 Personal history of nicotine dependence; Z79.82 Long term (current) use of aspirin; Z79.52 Long term (current) use of systemic steroids; Z79.899 Other long term (current) drug therapy
CPT/HCPCS: 93458; 87635; C1769; C1894; J2250; J2001; J3010; J1644; Q9967

== ENCOUNTER 2020-12-09 08:30 | Emergency (ER) | payer OTHER ==
[2020-12-09 08:34] VITALS: BP 155/80; PULSE 77; RESP 18; TEMP 98.7
[2020-12-09] MEDS ORDERED: FLUOROMETHOLONE 0.1% OPHTH DROPS 5 ML BTL LEFT EYE STA (08:36)
[2020-12-09] MEDS: PROPARACAINE 0.5% OPHTH DROPS 15 ML BTL LEFT EYE STA (08:44)
[2020-12-09] MEDS: FLUORESCEIN STRIPS 1 MG STRIP LEFT EYE STA (08:44)
--- NOTE | 2020-12-09 09:08 | ED ---
General Adult HPI - General Chief complaint: Eye Problems Stated complaint: eye problem Time Seen by Provider: 12/09/20 08:36 Source: patient, RN notes reviewed, old records reviewed Mode of arrival: ambulatory Limitations: no limitations - History of Present Illness Initial comments: 55-year-old male presents to the emergency room for a chief complaint of left- sided eye irritation. Patient reports that he was trimming the hedges yesterday and fell his eye and irritated. Thought maybe he had something in it. Patient did try to flush his eye. States he has been rubbing it a lot. This morning he woke up and it was a little swollen. He denies visual changes besides from some blurry vision from the tearing. He denies wearing contacts.Patient has no other complaints at this time including shortness of breath, chest pain, abdominal pain, nausea or vomiting, headache, or visual changes. - Related Data Home Medications Medication Instructions Recorded Confirmed Testosterone [Testim 1%] 1 applic TOPICAL DAILY 03/31/18 08/31/20 Multivitamin/Iron/Folic Acid 1 tab PO DAILY 07/16/19 08/31/20 [Centrum Adults Tablet] Aspirin [Adult Low Dose Aspirin EC] 81 mg PO DAILY 08/30/20 08/31/20 Metoprolol Tartrate 25 mg PO BID 08/30/20 08/31/20 Tadalafil [Cialis] 5 mg PO DAILY 08/30/20 08/31/20 Previous Rx's Medication Instructions Recorded Ofloxacin 0.3% Ophth Soln [Ocuflox 1 drops LEFT EYE Q4H 7 Days #5 ml 12/09/20 Ophth Soln] Allergies Allergy/AdvReac Type Severity Reaction Status Date / Time No Known Allergies Allergy Verified 12/09/20 08:34 Review of Systems ROS Statement: Those systems with pertinent positive or pertinent negative responses have been documented in the HPI. ROS Other: All systems not noted in ROS Statement are negative. Past Medical History Past Medical History: Cancer, Hypertension Additional Past Medical History / Comment(s): HERNIATED DISC, SKIN CANCER. History of Any Multi-Drug Resistant Organisms: None Reported Past Surgical History: Appendectomy, Joint Replacement, Orthopedic Surgery, Tonsillectomy Additional Past Surgical History / Comment(s): jaw surgery, lt knee arthroscopy. LT TKA, RT MALACHI. COLONOSCOPY Past Anesthesia/Blood Transfusion Reactions: No Reported Reaction Past Psychological History: Anxiety, Depression Smoking Status: Current some day smoker Past Alcohol Use History: Occasional Past Drug Use History: Marijuana - Past Family History Mother Family Medical History: Cancer General Exam Limitations: no limitations General appearance: alert, in no apparent distress Head exam: Present: atraumatic, normocephalic, normal inspection Eye exam: Present: PERRL, EOMI, conjunctival injection (Left sided conjunctival injection). Absent: scleral icterus, periorbital swelling Expanded Eyelids: Erythema: Left (Mild), Swelling: Left (Mild) Pupils: Regular, Round: Bilateral Sclera/Conjunctival: Normal Inspection: Right, Injection: Left Visual acuity (R) = 20/: 50 Visual acuity (L) = 20/: 70 With correction: No IOP (R) in mmH IOP (L) in mmH IOP measured with: Tonopen Course Vital Signs 12/09/20 08:32 Temperature 98.7 F Pulse Rate 77 Respiratory 18 Rate Blood Pressure 155/80 O2 Sat by Pulse 99 Oximetry Medical Decision Making - Medical Decision Making Patient does have erythema of the conjunctiva of the left eye with mild edema of the eyelid. Patient has been rubbing his eye a lot over the past day. Denies visual changes. Visual acuity is 20/50 OD, 20/70 OS. Patient forgot his glasses. The eye was examined. There is no evidence of foreign body. Both eyelids were flipped, no foreign bodies. Proparacaine applied which immediately alleviated patient's symptoms. Fluorescein stain was applied and Wood's lamp was used, no evidence of abrasions. Dr. Albright also evaluated patient, additionally does not see foreign body. At this time we will treat patient with ofloxacin drops. Recommend he see ophthalmology Friday especially if he has continuing symptoms. He'll return here for any worsening symptoms over the weekend. Disposition Clinical Impression: Conjunctivitis Disposition: HOME SELF-CARE Condition: Good Instructions (If sedation given, give patient instructions): Conjunctivitis (ED) Additional Instructions: Please use antibiotic drops as directed. If symptoms are not improving make sure you see ophthalmology on Friday. Return to the emergency room for any worsening symptoms return to the emergency room. Prescriptions: Ofloxacin 0.3% Ophth Soln [Ocuflox Ophth Soln] 1 drops LEFT EYE Q4H 7 Days #5 ml Is patient prescribed a controlled substance at d/c from ED?: No Referrals: Beny Bender MD [Primary Care Provider] - 1-2 days Fabien Conteh MD [STAFF PHYSICIAN] - 1-2 days Time of Disposition: 09:06
[2020-12-09] MEDS: OFLOXACIN 0.3% OPHTH DROPS 5 ML BOTTLE LEFT EYE STA (09:17)
== END 2020-12-09 09:11 | disposition home or self-care (01) ==
LOC: EC 08:30
DX: H10.9 Unspecified conjunctivitis (principal); I10 Essential (primary) hypertension; F41.9 Anxiety disorder, unspecified; F32.9 Major depressive disorder, single episode, unspecified; F17.200 Nicotine dependence, unspecified, uncomplicated; F12.90 Cannabis use, unspecified, uncomplicated
CPT/HCPCS: 99282

== ENCOUNTER → 2022-09-19 | Outpatient (CLI) | payer OTHER ==
--- NOTE | 2022-09-19 20:36 | CT ---
EXAMINATION TYPE: CT angio chest DATE OF EXAM: 09/19/2022 COMPARISON: None HISTORY: thoracic aortic aneurysm without rupture CT DLP: 723.9 mGycm, Automated exposure control for dose reduction was used. CONTRAST: Performed injected with 100 mL of Isovue 370. TECHNIQUE: Axial images were obtained at 5 mm thick sections. Reconstructed images are reviewed on [place] computer in the coronal plane. Contrast timing for the aorta. FINDINGS: Portion of the thyroid visualized is normal. No suspicious lung nodules or focal infiltrates are present. No enlarged mediastinal or hilar adenopathy is evident. The ascending aorta diameter at the level o f the main pulmonary artery is 4.0 cm. The main pulmonary artery diameter at the bifurcation is 2.[address] sections are obtained through the upper abdomen. Abdomen is essentially unremarkable. IMPRESSIONS: 1. Some intrathoracic aortic aneurysm of 4.0 cm
== END | disposition home or self-care (01) ==
LOC: RADCTMAIN 08:23
PROVIDERS: ATTEND Internal Medicine Interventional Cardiology
DX: I71.20 Thoracic aortic aneurysm, without rupture, unspecified (principal)
CPT/HCPCS: 71275; Q9967

== ENCOUNTER → 2022-09-19 | Outpatient (CLI) | payer OTHER ==
[2022-09-19 15:01] LABS: ALT 22 U/L (10-49); AST 20 U/L (14-35); African American GFR (CKD) 95.7 (60.0-200.0); Albumin 4.7 g/dL (3.8-4.9); Albumin/Globulin Ratio 2.14 (1.60-3.17); Alkaline Phosphatase 58 U/L (41-126); Blood Urea Nitrogen 12.9 mg/dL (9.0-27.0); Calcium 9.7 mg/dL (8.7-10.3); Carbon Dioxide 26.1 mmol/L (20.0-27.5); Chloride 104 mmol/L (96-109); Chol/HDL Ratio 2.36 Ratio; Globulin 2.2 g/dL (1.6-3.3); Glucose 105 mg/dL (70-110); LDL Cholesterol,Calculated 75.5 mg/dL (0.0-131.0); Non-African American GFR(CKD) 82.6 (60.0-200.0); Potassium 4.8 mmol/L (3.5-5.5); Sodium 141 mmol/L (135-145); Total Protein 6.9 g/dL (6.2-8.2); VLDL Calculation 12.76 mg/dL (5.00-40.00)
== END | disposition home or self-care (01) ==
LOC: LABWHC1 07:59
PROVIDERS: ATTEND Nurse Practitioner Adult Health
DX: I42.8 Other cardiomyopathies (principal); E78.2 Mixed hyperlipidemia
CPT/HCPCS: 36415; 80053; 80061

== ENCOUNTER 2023-01-18 19:11 | Emergency (ER) | payer OTHER ==
[2023-01-18 19:41] VITALS: BP 141/93; PULSE 68; RESP 18; TEMP 96.8
--- NOTE | 2023-01-18 19:56 | XR ---
EXAMINATION TYPE: XR ribs RT w pa chest xray DATE OF EXAM: 01/18/2023 COMPARISON: NONE HISTORY: Pain TECHNIQUE: Single view of the chest 4 views of the ribs are submitted. FINDINGS: The lungs are clear. No Evidence for pneumothorax. No evidence for focal contusion. Medi astinal structures are midline. Evaluation of the ribs fails to demonstrate evidence for displaced r ib fracture or secondary sign of rib fracture. IMPRESSION: Negative study
[2023-01-18] MEDS ORDERED: Acetaminophen-Codeine 300-30mg TAB PO STA (20:23)
[2023-01-18] MEDS ORDERED: ACET/COD 300 MG/30 MG STARTER PACK 6 TAB BTL PO STA (20:24)
--- NOTE | 2023-01-18 20:28 | ED ---
Fall HPI - General Chief Complaint: Fall Stated Complaint: R rib pain Time Seen by Provider: 01/18/23 20:09 Source: patient, family Mode of arrival: ambulatory - History of Present Illness Initial Comments: 57-year-old male presenting with chief complaint of rib pain. Patient was pulling out carpeting when he fell backwards onto the right side of the rib cage. No head injury, loss of consciousness, use of blood thinners. No difficulty breathing no palpitations. No abdominal pain, nausea, vomiting. - Related Data Home Medications Medication Instructions Recorded Confirmed Testosterone [Testim 1%] 1 applic TOPICAL DAILY 03/31/18 08/31/20 Multivitamin/Iron/Folic Acid 1 tab PO DAILY 07/16/19 08/31/20 [Centrum Adults Tablet] Aspirin [Adult Low Dose Aspirin EC] 81 mg PO DAILY 08/30/20 08/31/20 Metoprolol Tartrate 25 mg PO BID 08/30/20 08/31/20 tadalafiL [Cialis] 5 mg PO DAILY 08/30/20 08/31/20 Previous Rx's Medication Instructions Recorded Ofloxacin 0.3% Ophth Soln [Ocuflox 1 drops LEFT EYE Q4H 7 Days #5 ml 12/09/20 Ophth Soln] Acetaminophen-Codeine 300-30mg 1 tab PO Q4H PRN 3 Days #18 tablet 01/18/23 [Tylenol w/codeine #3] Lidocaine 5% Patch [Lidoderm 5% 1 patch TOPICAL DAILY PRN #30 patch 01/18/23 Patch] Allergies Allergy/AdvReac Type Severity Reaction Status Date / Time No Known Allergies Allergy Verified 01/18/23 19:40 Review of Systems ROS Statement: Those systems with pertinent positive or pertinent negative responses have been documented in the HPI. ROS Other: All systems not noted in ROS Statement are negative. Past Medical History Past Medical History: Cancer, Hypertension Additional Past Medical History / Comment(s): HERNIATED DISC, SKIN CANCER. History of Any Multi-Drug Resistant Organisms: None Reported Past Surgical History: Appendectomy, Joint Replacement, Orthopedic Surgery, Tonsillectomy Additional Past Surgical History / Comment(s): jaw surgery, lt knee arthroscopy. LT TKA, RT MALACHI. COLONOSCOPY Past Anesthesia/Blood Transfusion Reactions: No Reported Reaction Past Psychological History: Anxiety, Depression Smoking Status: Current some day smoker Past Alcohol Use History: Occasional Past Drug Use History: Marijuana - Past Family History Mother Family Medical History: Cancer General Exam Limitations: no limitations General appearance: alert, in no apparent distress Head exam: Present: atraumatic, normocephalic, normal inspection Eye exam: Present: normal appearance, EOMI Neck exam: Present: normal inspection, full ROM Respiratory exam: Present: normal lung sounds bilaterally, chest wall tenderness. Absent: respiratory distress, wheezes, rales, rhonchi, stridor Cardiovascular Exam: Present: regular rate, normal rhythm, normal heart sounds. Absent: systolic murmur, diastolic murmur, rubs, gallop, clicks Neurological exam: Present: alert, oriented X3, CN II-XII intact Psychiatric exam: Present: normal affect, normal mood Skin exam: Present: warm, dry, intact, normal color. Absent: rash Course Vital Signs 01/18/23 19:37 Temperature 96.8 F L Pulse Rate 68 Respiratory 18 Rate Blood Pressure 141/93 O2 Sat by Pulse 98 Oximetry Medical Decision Making - Medical Decision Making Was pt. sent in by a medical professional or institution (, PA, MANAGER FORMS, urgent care, hospital, or longterm...) When possible be specific @ -No Did you speak to anyone other than the patient for history (EMS, parent, family, police, friend...)? What history was obtained from this source @ -No Did you review nursing and triage notes (agree or disagree)? Why? @ -I reviewed and agree with nursing and triage notes Were old charts reviewed (outside hosp., previous admission, EMS record, old EKG, old radiological studies, urgent care reports/EKG's, longterm records)? Report findings @ -No old charts were reviewed Differential Diagnosis (chest pain, altered mental status, abdominal pain women, abdominal pain men, vaginal bleeding, weakness, fever, dyspnea, syncope, headache, dizziness, GI bleed, back pain, seizure, CVA, palpatations, mental health, musculoskeletal)? @ -not applicable EKG interpreted by me (3pts min.). @ -As above X-rays interpreted by me (1pt min.). @ -Rib x-ray with chest x-ray negative study CT interpreted by me (1pt min.). @ -None done U/S interpreted by me (1pt. min.). @ -None done What testing was considered but not performed or refused? (CT, X-rays, U/S, labs)? Why? @ -None What meds were considered but not given or refused? Why? @ -None Did you discuss the management of the patient with other professionals (professionals i.e. , PA, MANAGER FORMS, lab, RT, psych nurse, social worker delinquency prevention, corporate accountant, teacher, chief compliance officer, behavioral health case manager)? Give summary @ -No Was smoking cessation discussed for >3mins.? @ -No Was critical care preformed (if so, how long)? @ -No Were there social determinants of health that impacted care today? How? (Homelessness, low income, unemployed, alcoholism, drug addiction, transportation, low edu. Level, literacy, decrease access to med. care, group home, rehab)? @ -No Was there de-escalation of care discussed even if they declined (Discuss DNR or withdrawal of care, Hospice)? DNR status @ -No What co-morbidities impacted this encounter? (DM, HTN, Smoking, COPD, CAD, Cancer, CVA, ARF, Chemo, Hep., AIDS, mental health diagnosis, sleep apnea, morbid obesity)? @ -None Was patient admitted / discharged? Hospital course, mention meds given and route, prescriptions, significant lab abnormalities, going to OR and other pertinent info. @ -57-year-old male presenting with chief complaint of rib pain after falling earlier today. No head injury, loss of consciousness, use of blood thinners. No difficulty breathing. Heart and lungs are clear to auscultation. X-ray negative for rib fracture or pneumothorax. Patient educated on today's findings and supportive management at home. Follow-up with PCP. Report back to ER with any new or worsening symptoms. Discussed return parameters and answered all questions. Patient conveyed verbal understanding and agreed to the plan. I discussed this case in detail with my attending Dr. Garcia Undiagnosed new problem with uncertain prognosis? @ -No Drug Therapy requiring intensive monitoring for toxicity (Heparin, Nitro, Insulin, Cardizem)? @ -No Were any procedures done? @ -No Diagnosis/symptom? @ -Rib pain Acute, or Chronic, or Acute on Chronic? @ -Acute Uncomplicated (without systemic symptoms) or Complicated (systemic symptoms)? @ -uncomplicated Side effects of treatment? @ -No Exacerbation, Progression, or Severe Exacerbation? @ -No Poses a threat to life or bodily function? How? (Chest pain, [place], [place], pneumonia, PE, COPD, DKA, ARF, appy, cholecystitis, CVA, Diverticulitis, Homicidal, Suicidal, threat to staff... and all critical care pts) @ -No Disposition Clinical Impression: Rib pain Disposition: HOME SELF-CARE Condition: Good Instructions (If sedation given, give patient instructions): Rib Fracture (ED) Additional Instructions: Follow-up with PCP. Report back to ER with any new or worsening symptoms. Take medication as prescribed. Prescriptions: Lidocaine 5% Patch [Lidoderm 5% Patch] 1 patch TOPICAL DAILY PRN #30 patch PRN Reason: Pain Acetaminophen-Codeine 300-30mg [Tylenol w/codeine #3] 1 tab PO Q4H PRN 3 Days #18 tablet PRN Reason: Pain Is patient prescribed a controlled substance at d/c from ED?: Yes When asked, does pt state using other controlled substances?: No If prescribed controlled substance>3 days was MAPS reviewed?: Prescribed <3 Days If opioid is for acute pain is fill amount 7 days or less?: Yes Referrals: Beny Bender MD [Primary Care Provider] - 1-2 days Time of Disposition: 20:28
[2023-01-18] MEDS ORDERED: LIDOCAINE 5% PATCH TOPICAL SCH (21:00)
== END 2023-01-18 20:49 | disposition home or self-care (01) ==
LOC: EC 19:11
DX: R07.81 Pleurodynia (principal); I10 Essential (primary) hypertension; F41.9 Anxiety disorder, unspecified; F32.A Depression, unspecified; F17.200 Nicotine dependence, unspecified, uncomplicated; F12.90 Cannabis use, unspecified, uncomplicated; Z79.82 Long term (current) use of aspirin; Z79.899 Other long term (current) drug therapy; W18.30XA Fall on same level, unspecified, initial encounter
CPT/HCPCS: 99284

== ENCOUNTER → 2024-02-11 | Outpatient (CLI) | payer OTHER ==
--- NOTE | 2024-02-12 19:21 | CT ---
EXAMINATION TYPE: CT angio chest CT DLP: 822 mGycm, Automated exposure control for dose reduction was used. DATE OF EXAM: 02/11/2024 4:09 PM COMPARISON: CTA chest 09/19/2022 CLINICAL INDICATION:Male, 58 years old with history of THORATIC AORTIC ANEURYSM; THORATIC AORTIC ANEU RYSM TECHNIQUE/CONTRAST: CTA scan of the thorax is performed without and with IV Contrast, patient injected with 100ml mL of I sovue 370. MIP images are created and reviewed. FINDINGS: Lungs/Pleura: No evidence of focal consolidation, pleural effusion or pneumothorax. No suspicious pul monary nodules or masses. Airway: Large airways are patent. Heart: The heart is mildly enlarged for size. No pericardial effusion. Vasculature: No evidence of intramural hematoma or dissection. Aortic root measures 3.6 cm in diamete r. Ascending thoracic aorta measures 3.9 cm which is stable. Previously measured 4.0 cm. Conventional three-vessel aortic arch. Descending thoracic aorta measures 2.8 cm. Incidental infundibulum of the aortic arch medially (series 8, image 32). Mediastinum: No gross evidence of adenopathy. Musculoskeletal: No acute osseous abnormalities. Hypertrophic changes of the anterior thoracic spine. Soft Tissues: Minimal bilateral gynecomastia. Lower neck: Heterogenous thyroid gland. Upper Abdomen: No significant findings. IMPRESSION: Stable ectasia of the ascending thoracic aorta measuring 3.9 cm. [facility], , 02/12/2024 7:18 PM
== END | disposition home or self-care (01) ==
LOC: RADCTMAIN 14:58
PROVIDERS: ATTEND Internal Medicine Interventional Cardiology
DX: I71.20 Thoracic aortic aneurysm, without rupture, unspecified
CPT/HCPCS: 71275